=== PATIENT | male | born 1995 | race Caucasian/White ===

== ENCOUNTER 2017-02-28 18:31 | Emergency (ER) | payer OTHER ==
[~2017-02-28] VITALS: Ht 170.2 cm; Wt 82.6 kg
[2017-02-28 18:40] VITALS: TEMP 36.8; Ht 170.2 cm; Wt 82.6 kg
[2017-02-28] MEDS ORDERED: IBUP-103 PO (19:08)
--- NOTE | 2017-02-28 19:21 | DIAGNOSTIC IMAGING REPORT ---
LEFT THUMB 3 VIEWS CLINICAL HISTORY: L thumb pain COMPARISON: None. DISCUSSION: No acute fractures or dislocations are visualized. There are no erosive or destructive changes. There is soft tissue swelling centered on the to phalangeal joint. IMPRESSION: Soft tissue swelling. No fractures identified. No evidence of erosive disease. Electronically signed by: Douglas Vanegas M.D. 02/28/2017 7:20 PM Dictated Date/Time: 02/28/2017 7:20 PM
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
[2017-02-28 20:46] VITALS: BP 130/98; PULSE 61; O2SAT 98
== END 2017-02-28 20:40 | disposition home or self-care (01) ==
LOC: C.EDB 18:36 → C.EDD 20:40
DX: S60.012A Contusion of left thumb without damage to nail, initial encounter (principal); X58.XXXA Exposure to other specified factors, initial encounter; R03.0 Elevated blood-pressure reading, without diagnosis of hypertension; Z87.828 Personal history of other (healed) physical injury and trauma; Z80.9 Family history of malignant neoplasm, unspecified